=== PATIENT | male | born 1945 | race Caucasian/White ===

== ENCOUNTER → 2016-09-01 | Outpatient (CLI) | payer MEDICARE, OTHER | LOC: BMCIMAGING 13:12 | PROVIDERS: ATTEND Family Medicine | DX: R05 Cough (principal); R09.89 Other specified symptoms and signs involving the circulatory and respiratory systems ==

== ENCOUNTER 2016-12-14 19:57 | Emergency (ER) | payer OTHER ==
[2016-12-14 20:03] VITALS: TEMP 98.1
--- NOTE | 2016-12-14 20:10 | EDPHY ---
H & P Time Seen by Provider: 12/14/16 20:09 HPI/ROS: CHIEF COMPLAINT: Scalp laceration HISTORY OF PRESENT ILLNESS: Patient has a history of cirrhosis and alcoholism. He did fall 4 days ago working on the water system on their house. He fell today when he was in the bedroom at home lacerating his head on a corner of furniture. Mechanical fall, not syncope. No seizure activity. No loss of consciousness. He has been drinking alcohol today. He was still able to appropriately answer questions. No seizure activity reported. Currently still able to walk. He is really at his neurologic baseline now per his . REVIEW OF SYSTEMS: Eye: no change in vision or double vision ENT: no sore throat Cardiac: no chest pain or syncope Pulmonary: no cough or SOB Abdomen: no vomiting, diarrhea, abdominal pain Musculoskeletal: Chronic right lower extremity edema unchanged, no neck or back pain. Skin: Right arm cellulitis which compared to a photograph his took 4 days ago is much improved on Keflex. Neuro: Mild headache Constitutional: no fever : no urinary symptoms A comprehensive 10 point review of systems is otherwise negative aside from elements mentioned in the history of present illness. PAST MEDICAL HISTORY: History and physical dated 01/11/2015 personally reviewed. Includes cirrhosis from alcohol, frostbite, previous extremity cellulitis. Chronic pancytopenia. Hernia repair, wrist fracture. Social history: Alcohol today. 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 General Appearance: Alert and conversant, cooperative. Eyes: No scleral icterus. ENT, Mouth: Normal mucous membranes. No hemotympanum. Respiratory: Normal respiratory effort, breath sounds equal, lungs are clear to auscultation. Cardiovascular: Regular rate and rhythm. Gastrointestinal: Abdomen is soft and non tender. Neurological: Alert and oriented x3. Slightly slurred speech. Face symmetric, normal movement and sensation in all extremities. Skin: 2 cm vertex scalp laceration. Bruising on the right upper arm. He has some erythema and open wounds on the right arm with scabs but is not hot to the touch, no drainage or pus, no lymphangitis. Compared to photograph from his from 4 days ago it is much improved. Musculoskeletal: No cervical thoracic or lumbar spine tenderness to palpation. Some right arm bruising and edema and significant right leg edema which is chronic, venous stasis changes noted. Normal range of motion of right shoulder elbow wrist and hand. Psychiatric: Not agitated. Emergency Department course/MDM: His right arm cellulitis is improving. His right leg edema is chronic. He did fall today and it was mechanical; will have head CT because of slurred speech and age, chronic thrombocytopenia risk for bleeding. 2123: Negative head CT per Melissa. Results discussed in detail at this time. Warned no more drinking. No evidence of subdural or intracranial bleed. I do not think this was likely to have been syncope. is clear this is his neurologic baseline. Warned that he needs to stop drinking alcohol. Labs reviewed including AST and bilirubin. INR slightly elevated. Chronic thrombocytopenia. Both patient and are comfortable with discharge from the emergency department and going home. Smoking Status: Former smoker Constitutional: Initial Vital Signs Temperature (C) 36.7 C 12/14/16 20:00 Heart Rate 77 12/14/16 20:00 Respiratory Rate 20 12/14/16 20:00 Blood Pressure 116/82 H 12/14/16 20:00 O2 Sat (%) 96 12/14/16 20:00 O2 Delivery Mode Room Air Allergies/Adverse Reactions: rosuvastatin calcium [From Crestor] Allergy (Verified 12/14/16 20:03) JOINT PAIN Home Medications: Medication Instructions Recorded oxyCODONE/APAP 5/325 [Percocet 1 tab PO Q6H PRN #45 tab 01/10/15 5/325 (*)] Lactulose [Cephulac 20 gm/30 ml 30 gm PO BID 05/15/15 oral soln (*)] Potassium Cl [Klor-Con 10 meq (RX)] 10 meq PO DAILY 05/15/15 Naproxen [Naprosyn] 500 mg PO BIDMEAL 05/16/15 Polyethylene Glycol 3350 [Miralax 17 gm PO DAILY PRN #0 pkt 05/23/15 17 gm (*)] oxyCODONE/APAP 5/325 [Percocet 1 tab PO Q4 PRN #0 tab 05/23/15 5/325 (*)] Oxycodone HCl/Acetaminophen 1 each PO Q6 PRN #15 tablet 06/04/15 [Oxycodone-Acetaminophen 10-325] Cephalexin [Keflex (*)] 12/14/16 Medical Decision Making - Diagnostics EKG Interpretation: 12-lead EKG interpreted by me; official reading is in trace master. My interpretation is sinus rhythm with nonspecific intraventricular conduction delay rate 69. Imaging Results: Imaging Impressions Head CT 12/14/16 20:25 Impression: 1. Scalp laceration with no acute intracranial findings. 2. Diffuse cerebral atrophy with periventricular and subcortical low attenuation consistent with chronic microvascular ischemic gliosis. Findings discussed with GILMA AC 12/14/2016 at 21:22. Procedures: Procedure: Laceration repair. Verbal consent was obtained from the patient. The 2 cm laceration on the scalp was anesthetized using 0.5% bupivacaine with epinephrine. The wound was irrigated with standard emergency department protocol, draped and explored. There were no deep structures involved. No foreign body found. The wound was repaired with shay. The wound repair was simple. Excellent hemostasis was obtained. Wound care instructions were discussed and the patient was warned regarding scarring. The procedure was performed by myself. Differential Diagnosis: Differential diagnosis considered for head injury including but not limited to concussion, skull fracture, intraparenchymal contusion, subarachnoid, subdural and epidural hematoma. - Data Points Laboratory Results: Laboratory Results 12/14/16 20:23 12/14/16 20:23 12/14/16 12/14/16 12/14/16 Unknown 20:23 20:23 WBC 4.76 10^3/uL 10^3/uL (3.80-9.50) RBC 4.04 10^6/uL L 10^6/uL (4.40-6.38) Hgb 14.5 g/dL g/dL (13.7-17.5) Hct 41.6 % % (40.0-51.0) MCV 103.0 fL H fL (81.5-99.8) MCH 35.9 pg H pg (27.9-34.1) MCHC 34.9 g/dL g/dL (32.4-36.7) RDW 14.1 % % (11.5-15.2) Plt Count 66 10^3/uL L 10^3/uL (150-400) MPV 11.0 fL fL (8.7-11.7) Neut % (Auto) 41.4 % % (39.3-74.2) Lymph % (Auto) 44.7 % % (15.0-45.0) [place] % (Auto) 7.8 % % (4.5-13.0) Eos % (Auto) 3.4 % % (0.6-7.6) Baso % (Auto) 1.9 % H % (0.3-1.7) Nucleat RBC Rel Count 0.0 % % (0.0-0.2) Absolute Neuts (auto) 1.97 10^3/uL 10^3/uL (1.70-6.50) Absolute Lymphs (auto) 2.13 10^3/uL 10^3/uL (1.00-3.00) Absolute Monos (auto) 0.37 10^3/uL 10^3/uL (0.30-0.80) Absolute Eos (auto) 0.16 10^3/uL 10^3/uL (0.03-0.40) Absolute Basos (auto) 0.09 10^3/uL 10^3/uL (0.02-0.10) Absolute Nucleated RBC 0.00 10^3/uL 10^3/uL (0-0.01) Immature Gran % 0.8 % % (0.0-1.1) Immature Gran # 0.04 10^3/uL 10^3/uL (0.00-0.10) PT 15.5 SEC H SEC (12.0-15.0) INR 1.23 H (0.83-1.16) Sodium 138 mEq/L mEq/L (134-144) Potassium 5.0 mEq/L mEq/L (3.5-5.2) Chloride 105 mEq/L mEq/L (97-110) Carbon Dioxide 17 mEq/l L mEq/l (22-31) Anion Gap 16 mEq/L mEq/L (8-16) BUN 17 mg/dL mg/dL (7-23) Creatinine 1.1 mg/dL mg/dL (0.7-1.3) Estimated GFR > 60 Glucose 137 mg/dL H mg/dL (70-100) Calcium 9.0 mg/dL mg/dL (8.5-10.4) Total Bilirubin 5.2 mg/dL H mg/dL (0.1-1.4) Conjugated Bilirubin 3.1 mg/dL H mg/dL (0.0-0.5) Unconjugated Bilirubin 2.1 mg/dL H mg/dL (0.0-1.1) AST 290 IU/L H IU/L (17-59) ALT 71 IU/L IU/L (21-72) Alkaline Phosphatase 117 IU/L IU/L (38-126) Total Protein 7.8 g/dL g/dL (6.3-8.2) Albumin 3.6 g/dL g/dL (3.5-5.0) Specimen Hemolysis 181 Departure - Departure Disposition: Home, Routine, Self-Care Clinical Impression: Alcohol abuse Scalp laceration Qualifiers: Encounter type: initial encounter Qualified Code(s): S01.01XA - Laceration without foreign body of scalp, initial encounter Condition: Good Instructions: Laceration (ED), Head Injury (ED), Alcohol Intoxication (ED) Additional Instructions: Wound Care Follow-Up: Removal of sutures in 10-14 days. Suture removal is complimentary in uncomplicated cases. Infection or abnormal findings would require reevaluation by the MD. In that case, you may be billed. Referrals: Ap Guerrero MD [Primary Care Provider] - As per Instructions
--- NOTE | 2016-12-14 20:35 | CPEKG ---
Heart Rate: 69 RR Interval: 870 P-R Interval: 208 QRSD Interval: 114 QT Interval: 432 QTC Interval: 463 P Gove: 30 QRS Gove: 78 T Wave Gove: 51 EKG Severity - ABNORMAL ECG - EKG Impression: SINUS RHYTHM EKG Impression: NONSPECIFIC INTRAVENTRICULAR CONDUCTION DELAY Electronically Signed By: Davy Gonzales 14-Dec-2016 20:41:00
[2016-12-14 20:37] LABS: % IMMATURE GRANULYOCYTES 0.8 % (0.0-1.1); ABSOLUTE IMMATURE GRANULOCYTES 0.04 10^3/uL (0.00-0.10); ADD DIFF? NO; ADD MORPH? NO; ADD SCAN? NO; ATYPICAL LYMPHOCYTE FLAG 40 (0-99); FRAGMENT RBC FLAG 0 (0-99); HEMATOCRIT 41.6 % (40.0-51.0); HEMOGLOBIN 14.5 g/dL (13.7-17.5); LEFT SHIFT FLG 0 (0-99); LIPEMIA HEMOLYSIS FLAG 90 (0-99); MEAN CELL HEMOGLOBIN 35.9 pg (27.9-34.1); MEAN CELL HEMOGLOBIN CONCENTR. 34.9 g/dL (32.4-36.7); PLATELET CLUMPS FLAG 0 (0-99); PLATELET COUNT 66 10^3/uL (150-400); RED BLOOD CELL COUNT 4.04 10^6/uL (4.40-6.38); RED CELL DISTRIBUTION WIDTH 14.1 % (11.5-15.2)
[2016-12-14 20:56] LABS: ALANINE AMINOTRANSFERASE 71 IU/L (21-72); ALBUMIN 3.6 g/dL (3.5-5.0); ALKALINE PHOSPHATASE 117 IU/L (38-126); ANION GAP 16 mEq/L (8-16); ASPARTATE AMINOTRANSFERASE 290 IU/L (17-59); BILIRUBIN,TOTAL 5.2 mg/dL (0.1-1.4); BILIRUBIN-CONJUGATED 3.1 mg/dL (0.0-0.5); BILIRUBIN-UNCONJUGATED 2.1 mg/dL (0.0-1.1); CARBON DIOXIDE 17 mEq/l (22-31); CHLORIDE 105 mEq/L (97-110); CREATININE 1.1 mg/dL (0.7-1.3); GLOMERULAR FILTRATION RATE > 60; GLUCOSE 137 mg/dL (70-100); SODIUM 138 mEq/L (134-144); SPECIMEN HEMOLYSIS 181; TOTAL PROTEIN 7.8 g/dL (6.3-8.2)
[2016-12-14 21:00] LABS: INR 1.23 (0.83-1.16); PROTIME(PATIENT) 15.5 SEC (12.0-15.0)
[2016-12-14 21:56] VITALS: BP 136/77; PULSE 76; RESP 17; O2SAT 92
== END 2016-12-14 21:56 | disposition home or self-care (01) ==
PROC: 0HQ0XZZ Repair Scalp Skin, External Approach (ICD-10-PCS; principal; 2016-12-14)
DX: S01.01XA Laceration without foreign body of scalp, initial encounter (principal); F10.10 Alcohol abuse, uncomplicated; Z87.891 Personal history of nicotine dependence; W18.39XA Other fall on same level, initial encounter; Y92.009 Unspecified place in unspecified non-institutional (private) residence as the place of occurrence of the external cause

== ENCOUNTER 2017-07-31 22:41 | Inpatient (IN) | payer OTHER ==
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
[2017-07-31] MEDS ORDERED: NS 1,000 ML IV ONE ×2 (22:58→23:13)
[2017-07-31 23:02] LABS: PLATELET COUNT 108 10^3/uL (150-400)
[2017-07-31 23:04] LABS: INR 1.24 (0.83-1.16); PROTIME(PATIENT) 15.8 SEC (12.0-15.0)
[2017-07-31] MEDS ORDERED: TRANEXAMIC ACID 1,000 MG in NS (SYRINGE) 50 ML IV ONE (23:12)
[2017-07-31] MEDS ORDERED: TRANEXAMIC ACID 1,000 MG/10 ML VIAL ONE (23:14)
[2017-07-31] MEDS ORDERED: TRANEXAMIC ACID 1,000 MG in NS 500 ML IV ONE (23:15)
[2017-07-31] MEDS ORDERED: levETIRAcetam 1000MG/NACL 100 ML IV ONE (23:15)
[2017-07-31] MEDS ORDERED: NALOXONE HCL 0.4 MG/ML INJ IVP PRN (23:42)
[2017-07-31] MEDS ORDERED: ONDANSETRON 4 MG/2 ML VIAL IVP PRN (23:42)
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
[2017-08-01] MEDS: NS 1,000 ML IV SCH ×2 (00:29→10:20)
[2017-08-01] MEDS: HYDROmorphONE/DILAUDID 1 MG/ML INJ IVP PRN ×7 (00:45→12:57)
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
[2017-08-01] MEDS ORDERED: NS 1,000 ML IV ONE ×2 (07:47→16:43)
[2017-08-01] MEDS: FAMOTIDINE 20 MG/NACL 50 ML IV SCH ×2 (09:12→20:55)
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
[2017-08-01] MEDS: levETIRAcetam 500MG/NACL 100 ML IV SCH ×2 (09:53→20:55)
[2017-08-01] MEDS ORDERED: HALOPERIDOL LACT 5 MG/ML INJ IVP PRN (14:38)
[2017-08-01] MEDS ORDERED: NS 500 ML IV PRN (14:38)
[2017-08-01] MEDS ORDERED: NALOXONE HCL 0.4 MG/ML INJ IVP PRN (14:50)
[2017-08-01] MEDS ORDERED: morphINE PCA 30 MG/30 ML PCA IV PRN (14:50)
[2017-08-01] MEDS ORDERED: OXYCODONE/APAP 5/325 TAB PO PRN (14:52)
[2017-08-01] MEDS: LR 1,000 ML IV SCH (15:12)
[2017-08-01] MEDS ORDERED: NS 500 ML IV ONE (16:39)
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
[2017-08-01] MEDS: METOPROLOL TARTRATE 5 MG/5 ML INJ IVP SCH (17:25)
[2017-08-01] MEDS: LORazepam 2 MG/ML INJ IVP SCH (19:05)
[2017-08-02] MEDS ORDERED: HYDROmorphONE/DILAUDID 1 MG/ML INJ IVP ONE (00:27)
[2017-08-02] MEDS: METOPROLOL TARTRATE 5 MG/5 ML INJ IVP SCH ×3 (00:32→11:33)
[2017-08-02] MEDS: LORazepam 2 MG/ML INJ IVP SCH ×5 (00:33→23:49)
[2017-08-02] MEDS: HYDROmorphONE/DILAUDID 1 MG/ML INJ IVP PRN (06:03)
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
[2017-08-02 07:04] LABS: INR 1.42 (0.83-1.16); PROTIME(PATIENT) 17.5 SEC (12.0-15.0)
[2017-08-02] MEDS: LR 1,000 ML IV SCH (07:55)
[2017-08-02] MEDS: FAMOTIDINE 20 MG/NACL 50 ML IV SCH ×2 (07:56→21:22)
[2017-08-02] MEDS: levETIRAcetam 500MG/NACL 100 ML IV SCH ×2 (08:10→21:22)
--- NOTE | 2017-08-02 08:19 | SOAPPROG ---
SOAP Progress Note Assessment/Plan: Assessment: VERY SOMNOLENT AND HARD TO AROUSE AFTER DILAUDID/ BS EQUAL/ REQUIRING 5L O2 ABD SOFT/ MOVES ALL EXTREM/ PUPILS SMALL HCT DOWN TO 30/ CREAT 1.7/ INR 1.5 Plan:NARCAN, IF NOT BETTER THEN FU HEAD SCAN 08/02/17 08:16 Objective: Vital Signs Temp Pulse Resp BP Pulse Ox 36.4 C 92 13 137/66 H 97 08/02/17 07:00 08/02/17 07:00 08/02/17 07:00 08/02/17 07:00 08/02/17 07:00 Laboratory Results 08/02/17 06:50 08/02/17 06:00 08/01/17 08/02/17 08/03/17 05:59 05:59 05:59 Intake Total 2471 6543 Output Total 775 750 Balance 1696 3903 PT 17.5 SEC (12.0-15.0) H 08/02/17 06:50 INR 1.42 (0.83-1.16) H 08/02/17 06:50 ICD10 Worksheet Patient Problems: Problems Problem Status Onset Alcohol intoxication Acute Rib fractures Acute SAH (subarachnoid hemorrhage) Acute Thoracic spine fracture Acute Cellulitis Acute Gouty arthropathy Acute Septic arthritis of wrist, right Acute Pancytopenia Chronic
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
[2017-08-02] MEDS ORDERED: DEXMEDETOMIDINE HCL 400 MCG in NS 100 ML IV SCH (11:30)
[2017-08-02] MEDS: DEXMEDETOMIDINE IN 0.9 % NACL 50 ML IV SCH ×3 (11:33→13:45)
[2017-08-02] MEDS: THIAMINE HCL 500 MG in NS 250 ML IV SCH (12:06)
--- NOTE | 2017-08-02 12:09 | PDINTPN ---
[employer] Super[employer] Progress Note Assessment/Plan: Assessment: ICH: Traumatic. Slight increase in bleeding. INR mildly elevated. Delerium: Likely a combination of acute head trauma/hemorrhage, hepatic encephalopathy (NH3 elevated), possible EtOH withdrawal Multiple Rib fractures: No PTX. Likely has significant pain, but difficult to assess due to his mental status. RAGINI: Suspect intravascular depletion. Still with low urine output. Acute respiratory failure: Hypercapneic, with NAG metabolic acidosis (likely due to RAGINI) as well. Cirrhosis: INR and NH3 up a bit. Plan: Intubate. Place PICC. Check CVP, and possibly NICOM, to help direct fluid management. TXA and Vitamin K to reduce ICH risk. Precedex and PRN Ativan for possible DTs. 40 min CC time exclusive of procedures, with multiple assessments for severe hypertension, tachycardia, and respiratory failure. 08/02/17 12:18 Subjective: Less responsive. Unable to report pain. Objective: Vital Signs Temp Pulse Resp BP Pulse Ox 37.2 C 141 H 34 H 191/98 H 95 08/02/17 11:00 08/02/17 11:33 08/02/17 11:00 08/02/17 11:33 08/02/17 11:00 Laboratory Results 08/02/17 06:50 08/02/17 06:00 08/01/17 08/02/17 08/03/17 05:59 05:59 05:59 Intake Total 2471 4653 Output Total 775 750 Balance 1696 3903 PT 17.5 SEC (12.0-15.0) H 08/02/17 06:50 INR 1.42 (0.83-1.16) H 08/02/17 06:50 Laboratory Tests 08/02/17 08/02/17 09:20 11:23 pCO2 47 H pO2 93 H Total CO2 19 L ABG pH 7.19 L* ABG HCO3 17 L Ammonia 42.0 H CTH: Slight increase in hematoma. Images reviewed by me. CXR: Unchanged. Images reviewed by me. Physical Exam - Physical Exam General Appearance: mild distress, No alert EENT: normal ENT inspection Neck: normal inspection Respiratory: decreased breath sounds, crackles (right) Cardiac/Chest: regular rate, rhythm, No edema Abdomen: normal bowel sounds, non-tender Skin: normal color, warm/dry Extremities: normal inspection Neuro/Psych: No alert, No normal mood/affect, No oriented x 3, No motor weakness ICD10 Worksheet Patient Problems: Problems Problem Status Onset Alcohol intoxication Acute Rib fractures Acute SAH (subarachnoid hemorrhage) Acute Thoracic spine fracture Acute Cellulitis Acute Gouty arthropathy Acute Septic arthritis of wrist, right Acute Pancytopenia Chronic
[2017-08-02] MEDS ORDERED: LIDOCAINE 1% 300 MG/30 ML SDV ONE (12:28)
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
[2017-08-02] MEDS: fentaNYL/NACL 100 ML IV SCH (12:47)
[2017-08-02] MEDS ORDERED: LIDOCAINE 1% 300 MG/30 ML SDV IH ONE (13:00)
[2017-08-02] MEDS ORDERED: PHYTONADIONE 2.5 MG/2.5 ML ORAL UDL PO ONE (13:31)
[2017-08-02] MEDS ORDERED: TRANEXAMIC ACID 1,000 MG in NS (SYRINGE) 50 ML IV ONE (13:32)
[2017-08-02] MEDS ORDERED: LACTULOSE 20 GM/30 ML UDCUP PO PRN (13:33)
[2017-08-02] MEDS ORDERED: NS 1,000 ML IV ONE ×2 (15:10→17:30)
--- NOTE | 2017-08-02 18:19 | GPN ---
[f rep st] PROCEDURE NOTE DATE OF PROCEDURE: 08/02/2017 PROCEDURE: Flexible fiberoptic bronchoscopy. REASON FOR PROCEDURE: Acute hypercapnic respiratory failure with failure to protect airway, need for intubation, and possible retained secretions. PROCEDURE NOTE: The risks and benefits of the procedure were explained to the patient's , who ag marielena to proceed. It was my assessment that there was no risk of airborne infection from the procedur e. After an appropriate time-out, a bite block was placed between the patient's teeth, and the [facility] hoscope was advanced through the bite block into the vocal cords. 2 cc of 1% lidocaine was used topi geri on the airways for anesthesia. The bronchoscope was advanced through the vocal cords into the main trachea, where the endotracheal tube was secured and placed in the distal trachea. The bronchos cope was removed and the patient was bagged. His saturations never fell below 90%. The bronchoscope was then reintroduced into the endotracheal tube. There were scattered, white thin foamy secretions throughout all airways. These were easily suctioned. The airway anatomy and mucosa were normal, wi th no endobronchial lesions. No specimens were sent. The position of the endotracheal tube 2 cm abo ve the main radames was confirmed, and the bronchoscope was removed. No additional sedation was used. No specimens were sent. /[id number]/MODL
[2017-08-02] MEDS ORDERED: ALBUMIN 5% 500 ML IV ONE (19:00)
[2017-08-03] MEDS: LR 1,000 ML IV SCH ×2 (02:24→20:53)
[2017-08-03] MEDS: DEXMEDETOMIDINE IN 0.9 % NACL 50 ML IV SCH ×3 (02:24→18:05)
[2017-08-03] MEDS: LORazepam 2 MG/ML INJ IVP SCH ×3 (05:03→18:05)
[2017-08-03] MEDS ORDERED: ALTEPLASE 2 MG VIAL ONE ×2 (05:05→05:08)
[2017-08-03 05:44] LABS: PLATELET COUNT 53 10^3/uL (150-400)
[2017-08-03] MEDS: ALTEPLASE 2 MG VIAL IVP PRN ×2 (06:26→06:27)
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
[2017-08-03] MEDS ORDERED: FUROSEMIDE 20 MG/2 ML VIAL IVP ONE (09:04)
[2017-08-03] MEDS: levETIRAcetam 500MG/NACL 100 ML IV SCH ×2 (09:20→20:54)
[2017-08-03] MEDS: THIAMINE HCL 500 MG in NS 250 ML IV SCH (09:20)
[2017-08-03] MEDS: FAMOTIDINE 20 MG/NACL 50 ML IV SCH ×2 (09:20→20:53)
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
[2017-08-03] MEDS ORDERED: LORazepam 2 MG/ML INJ IVP ONE (10:17)
[2017-08-03] MEDS: METOPROLOL TARTRATE 5 MG/5 ML INJ IVP PRN (10:28)
[2017-08-03] MEDS ORDERED: ALBUMIN 5% 250 ML IV ONE (11:32)
[2017-08-03] MEDS: cefTRIAXone 2 GM in STERILE WATER INJ 20 ML IV SCH (12:13)
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
--- NOTE | 2017-08-03 12:46 | CPEKG ---
Heart Rate: 115 RR Interval: 522 P-R Interval: 140 QRSD Interval: 102 QT Interval: 340 QTC Interval: 471 P [place]: 64 QRS [place]: 57 T Wave [place]: 45 EKG Severity - OTHERWISE NORMAL ECG - EKG Impression: SINUS TACHYCARDIA EKG Impression: LOW VOLTAGE IN FRONTAL LEADS Electronically Signed By: Oleksandr Leiva 04-Aug-2017 15:49:08
[2017-08-03] MEDS: fentaNYL/NACL 100 ML IV SCH (14:30)
[2017-08-03] MEDS: FUROSEMIDE 40 MG/4 ML VIAL IVP SCH (19:36)
[2017-08-03] MEDS: ALBUMIN 5% 250 ML IV SCH (20:53)
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
[2017-08-04] MEDS: LORazepam 2 MG/ML INJ IVP SCH ×5 (01:45→18:09)
[2017-08-04] MEDS: ALBUMIN 5% 250 ML IV SCH ×2 (02:06→12:06)
[2017-08-04] MEDS: FUROSEMIDE 40 MG/4 ML VIAL IVP SCH ×2 (02:11→08:50)
[2017-08-04] MEDS: METOPROLOL TARTRATE 5 MG/5 ML INJ IVP PRN (03:04)
[2017-08-04 04:59] LABS: INR 1.9 (0.83-1.16); PLATELET COUNT 56 10^3/uL (150-400); PROTIME(PATIENT) 21.9 SEC (12.0-15.0)
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
[2017-08-04] MEDS: cefTRIAXone 2 GM in STERILE WATER INJ 20 ML IV SCH (08:50)
[2017-08-04] MEDS: THIAMINE HCL 500 MG in NS 250 ML IV SCH (08:50)
[2017-08-04] MEDS: levETIRAcetam 500MG/NACL 100 ML IV SCH ×2 (08:51→20:08)
[2017-08-04] MEDS ORDERED: 1/2 NS 1,000 ML IV SCH (09:30)
[2017-08-04] MEDS ORDERED: LACTULOSE 20 GM/30 ML UDCUP PO SCH ×2 (09:30→16:00)
--- NOTE | 2017-08-04 09:45 | SOAPPROG ---
SOAP Progress Note Assessment/Plan: Assessment: R glenoid fracture R clavicle fracture Plan: Based on plain films and CT I would recommend non operative treatment for the above Non wt bearing RUE sling for comfort, does not need to wear sling ROM as tolerated RUE follow up in 10 days for shoulder and clavicle films as outpatient or if still in the hospital will order films 08/04/17 09:41 Objective: Vital Signs Temp Pulse Resp BP Pulse Ox 37.3 C 126 H 22 H 144/62 H 95 08/04/17 09:00 08/04/17 09:00 08/04/17 09:00 08/04/17 09:00 08/04/17 09:00 Microbiology 08/03/17 12:00 Blood Panel (PCR) - Final Blood S.aureus Methicillin Suscept. Streptococcus 08/03/17 12:28 - Final Sputum, Induced/Suctioned Laboratory Results 08/04/17 04:30 08/04/17 04:30 08/03/17 08/04/17 08/05/17 05:59 05:59 05:59 Intake Total 4501 1996 Output Total 1000 3355 1000 Balance 3501 -1358 -1000 PT 21.9 SEC (12.0-15.0) H 08/04/17 04:30 INR 1.90 (0.83-1.16) H 08/04/17 04:30 ICD10 Worksheet Patient Problems: Problems Problem Status Onset Alcohol intoxication Acute Rib fractures Acute SAH (subarachnoid hemorrhage) Acute Thoracic spine fracture Acute Cellulitis Acute Gouty arthropathy Acute Septic arthritis of wrist, right Acute Pancytopenia Chronic
[2017-08-04] MEDS ORDERED: PHYTONADIONE 10 MG in NS (SYRINGE) 50 ML IV ONE (10:08)
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
[2017-08-04] MEDS ORDERED: POTASSIUM Cl (KCl) 10 MEQ in D5W 1/2 NS 1,000 ML IV SCH (11:30)
[2017-08-04] MEDS: METOCLOPRAMIDE 10 MG/2 ML VIAL IVP SCH ×2 (12:06→18:05)
[2017-08-04] MEDS: LIDOCAINE 5% 1 EA PATCH TD SCH (12:11)
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
[2017-08-04] MEDS ORDERED: THIAMINE HCL 100 MG TAB PO SCH (14:38)
[2017-08-04] MEDS ORDERED: METOPROLOL TARTRATE 5 MG/5 ML INJ ONE ×2 (14:44→14:50)
[2017-08-04] MEDS: METOPROLOL TARTRATE 5 MG/5 ML INJ IVP SCH ×2 (14:45→18:10)
--- NOTE | 2017-08-04 15:41 | CPEKG ---
Heart Rate: 154 RR Interval: 390 QRSD Interval: 108 QT Interval: 312 QTC Interval: 500 QRS Hudson: 54 T Wave Hudson: -11 EKG Severity - ABNORMAL ECG - EKG Impression: ATRIAL FIBRILLATION WITH RAPID V-RATE EKG Impression: VENTRICULAR PREMATURE COMPLEX EKG Impression: LOW VOLTAGE IN FRONTAL LEADS EKG Impression: BORDERLINE T ABNORMALITIES, INFERIOR LEADS Electronically Signed By: Oleksandr Leiva 04-Aug-2017 15:48:50
[2017-08-04] MEDS: LACTULOSE 20 GM/30 ML UDCUP TUBE SCH ×2 (15:42→21:29)
[2017-08-04] MEDS ORDERED: MAGNESIUM SULF 2 GM/WATER 50 ML IV ONE (15:44)
[2017-08-04] MEDS ORDERED: POTASSIUM Cl (KCl) 100 ML IV SCH (15:45)
[2017-08-04] MEDS ORDERED: DILTIAZEM 25 MG/5 ML VIAL IVP SCH (15:45)
[2017-08-04] MEDS ORDERED: POTASSIUM Cl (KCl) 20 MEQ in D5W 50 ML IV SCH (16:00)
[2017-08-04] MEDS: DILTIAZEM 125 MG in D5W 125 ML IV SCH ×2 (16:09→23:08)
[2017-08-04] MEDS ORDERED: DIGOXIN 500 MCG/2 ML AMP IVP ONE (16:38)
[2017-08-04] MEDS: POTASSIUM Cl (KCl) 50 ML IV SCH ×2 (16:47→17:58)
[2017-08-04] MEDS: PETROLAT,WHT/MIN OIL/SOD CHL 3.5 GM OPHT.OINT EACHEYE PRN (18:10)
[2017-08-04] MEDS: FAMOTIDINE 20 MG/NACL 50 ML IV SCH (20:08)
[2017-08-04] MEDS: PATCH REMOVAL 1 EA PATCH TD SCH (21:29)
[2017-08-04] MEDS: ALBUMIN 25% 100 ML IV SCH (21:29)
[2017-08-05] MEDS: METOCLOPRAMIDE 10 MG/2 ML VIAL IVP SCH ×5 (00:37→23:57)
[2017-08-05] MEDS: METOPROLOL TARTRATE 5 MG/5 ML INJ IVP SCH ×5 (00:41→23:47)
[2017-08-05] MEDS: LORazepam 2 MG/ML INJ IVP SCH ×3 (00:54→13:35)
[2017-08-05 04:49] LABS: INR 1.63 (0.83-1.16); PROTIME(PATIENT) 19.5 SEC (12.0-15.0)
[2017-08-05 04:58] LABS: PLATELET COUNT 65 10^3/uL (150-400)
[2017-08-05] MEDS: ALBUMIN 25% 100 ML IV SCH ×3 (05:01→23:47)
[2017-08-05] MEDS ORDERED: ACETAMINOPHEN 650 MG/20.3 ML UDCUP TUBE ONE (06:15)
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
[2017-08-05] MEDS: LIDOCAINE 5% 1 EA PATCH TD SCH ×2 (07:38→13:38)
[2017-08-05] MEDS: POTASSIUM CL 20 MEQ/15 ML UDCUP TUBE SCH ×2 (07:39→17:25)
[2017-08-05] MEDS: FUROSEMIDE 40 MG/4 ML VIAL IVP SCH (07:39)
[2017-08-05] MEDS: levETIRAcetam 500MG/NACL 100 ML IV SCH ×2 (07:39→22:14)
[2017-08-05] MEDS: cefTRIAXone 2 GM in STERILE WATER INJ 20 ML IV SCH (07:39)
[2017-08-05] MEDS: LACTULOSE 20 GM/30 ML UDCUP TUBE SCH ×3 (07:39→23:57)
--- NOTE | 2017-08-05 09:00 | TRAUMAPN ---
- Problem/Surgery Performed (1) Alcohol intoxication Assessment/Plan: PAD#4 08/04/2017 Assessment: No evidence of withdrawal at this point ( etiology of tachycardia appears to be multifactorial) This has been a chronic problem. Note MCV= 108, cirrhosis Plan: Supportive care. halfway plan will need to be developed Qualifiers: Complication of substance-induced condition: uncomplicated Qualified Code(s ): F10.920 - Alcohol use, unspecified with intoxication, uncomplicated (2) Rib fractures Assessment/Plan: PAD#4 Assessment: Has multiple right rib and transverse process fractures No PTX but increasing bilateral (R>L) fluid collections Plan: CT to assess. May need chest tube/thoracentesis/VATS PAD#5 Assessment: CT yesterday showed left rib fractures that had not been reported on original CT read (1st- old, new laterally- 4,5,6,8,10,11, posteriorly - 5,6,7,8,9,10). Bilateral fluid collections were at [place] level consistent with fluid not blood. bilateral lower lobe consolidation seen. Lidoderm patch used on right. Plan: continue pulmonary support. Add lidoderm patch to left chest. Qualifiers: Encounter type: initial encounter Rib fracture type: multiple ribs Fracture type: closed Laterality: right Qualified Code(s): S22.41XA - Multiple fractures of ribs, right side, initial encounter for closed fracture (3) SAH (subarachnoid hemorrhage) Assessment/Plan: PAD#4 Assessment: Neurosurgery input appreciated. Plan: As per neurosurgery will continue Keppra and continue to re-assess. PAD#5 Assessment: less arousable. No longer moving toes to command Plan: per neurosurgery (4) Thoracic spine fracture Assessment/Plan: PAD#4 Assessment: TLSO brace present PAD#5 same Qualifiers: Encounter type: initial encounter Thoracic vertebra fracture level: T9 Fracture type: closed Fracture morphology: burst- stable Qualified Code(s): S22.071A - Stable burst fracture of T9-T10 vertebra, initial encounter for closed fracture (5) Cellulitis Assessment/Plan: PAD#4 Assessment: Edema 4+ erythema present but improved per nursing. Perhaps this is the source of his MSSA sepsis Plan: Work to minimize edema with tanya wrap and elevation PAD#5 assessment: Edema dramatically reduced Qualifiers: Site of cellulitis: extremity Site of cellulitis of extremity: lower extremity Laterality: right Qualified Code(s): L03.115 - Cellulitis of right lower limb (6) Pancytopenia Assessment/Plan: PAD#4 Assessment: Platelets still low. Will not transfuse unless symptomatic or procedure planned. PAD#5 Assessment: Hct stabilizing platelets up to 65 WBC up to 11k. Assessment/Plan: PAD#4 Assessment: 1)Nutrition- no bowel function yet and moderate NG output. 2)Coagulation status: INR increasing 3)Elevated total and direct Bilirubin. Known gall stones 4)Fluid status: Total body fluid overload but possibly intravascularly dry 5)Sedation:currently off and patient appears to be slowly becoming interactive. (Moves toes to request) Plan: 1)Will add glucose to IV fluids ( has received Thiamine) and consider TPN if enteric feeding does not become an option. 2)Vit K added as well as FFP 3)Bilirubin issues unclear. May be due to liver failure but if increases will need to consider MRCP to help guide plans 4)Gentle diuresis continues 5)Added topical lidoderm for pain control / hope to minimize narcotics PAD#5 Assessment: Still critical 1)Nutrition- Gastric residuals minimal, minimal bowel sounds 2)Coagulation status: INR improved 3)Continued elevated total and direct Bilirubin. Known gall stones. Bile ducts not dilated on CT yesterday. There do not appear to be any contributing medications. 4)Fluid status: Total body fluid overload but possibly intravascularly dry. BUN up but Cr down. 5)Sedation:currently off and patient appears to be slowly becoming interactive. (Moves toes to request) 6)Afib started yesterday. Responded to diltiazem drip. 7)Infection: low grade temp, MSSA and strep C. + blood cultures, H. Flu and strep in sputum Plan: 1)After MRCP will start trickle feeds 2)will follow INR 3)Bilirubin issues still unclear. Presume elevated bilirubin is due to cirrhosis and failing liver. MRCP p;anned for this morning 4)Gentle diuresis continues. 5)Additional topical lidoderm patch added for left side for pain control / hope to minimize narcotics 6)Follow cardiac status 7)Will adjust antibiotics per C&S Objective: Vital Signs Temp Pulse Resp BP Pulse Ox 38.1 C 113 H 26 H 159/54 H 93 08/05/17 07:00 08/05/17 08:00 08/05/17 08:00 08/05/17 08:00 08/05/17 08:00 Microbiology 08/03/17 12:00 Blood Panel (PCR) - Final Blood S.aureus Methicillin Suscept. Streptococcus 08/03/17 12:28 - Final Sputum, Induced/Suctioned Laboratory Results 08/05/17 04:20 08/05/17 04:20 08/04/17 08/05/17 08/06/17 05:59 05:59 05:59 Intake Total 1996 2661 Output Total 3355 4975 65 [facility] -1358 -2313 -65 PT 19.5 SEC (12.0-15.0) H 08/05/17 04:20 INR 1.63 (0.83-1.16) H 08/05/17 04:20 - C-Spine Clearance Cervical Spine Cleared: Yes Physical Exam - Physical Exam General Appearance: other (intubated, non-responsive) Respiratory: decreased breath sounds (intubated- minimal normal sectetions), crackles, rhonchi, other Abdomen: normal bowel sounds (hypoactive, no stool yet), distended Male Genitalia: deferred Rectal: deferred Back: Normal inspection Skin: normal color, warm/dry, jaundice Extremities: other (Right lower leg swelling dramatically improved) Neuro/Psych: other (intubated, non-responsive) Time Spent w/Patient (minutes): 45
[2017-08-05] MEDS: POTASSIUM Cl (KCl) 20 MEQ in D5W 1,000 ML IV SCH ×2 (09:58→21:30)
--- NOTE | 2017-08-05 10:58 | ASMTCMCOM ---
CM Note CM Note Notes: Patient remains intubated but has been off sedation for >24 hrs. Per RN, he is not showing any meaningful responses. He has an NG tube and will begin trickle feeds after MRCP today. His liver function continues to be an impediment to his progress. Inpatient rehab consult has been ordered but patient has not been able to participate in therapies. His family has requested a family meeting; this will be held tomorrow at 12pm. Current CM Discharge plan: TBD Date Signed: 08/05/2017 10:58 AM Electronically Signed By:Alma Bryan RN
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
[2017-08-05] MEDS ORDERED: PROTOCOL POTASSIUM 1 DOSE MISC PRN (15:39)
--- NOTE | 2017-08-05 16:18 | ECHO ---
[email or web address] [place] [id number] Main: [phone] Fax: Transthoracic Echocardiogram Name: KERI MANN MR#: [id number] Study Date: 08/04/2017 Study Time: 03:23 PM Date of : 1945 Age: 71 year(s) Height: 188 cm (74 in.) Weight: 97.52 kg (215 lb.) BSA: 2.24 m2 Gender: Male Examination: Limited Echo Indication: ST after chest trauma Image Quality: Contrast: Requested by: Mike Raman BP: 116 mmHg/52 mmHg Heart Rate: Rhythm: Indication: ST after chest trauma Procedure Staff News Videotape Editor: Brittney Rizo RUST Reading Physician: Sylvester López Requesting Provider: Conclusions: No pericardial effusion. Ejection fraction 65% without regional wall motion abnormalities. Normal right ventricular size and function. No significant valvular abnormalities by Doppler 2 dimensional study. Measurements: Chambers Valvular Assessment AV/MV Valvular Assessment TV/PV Normal Normal Normal Name Value Range Name Value Range Name Value Range Ao Carla (MM): 3.9 cm (2.2 cm-3.7 AV meanP mmHg ( - ) cm) MV E Vmax: 0.65 m/s ( - ) LVDd (2D): 4.8 cm (4.2 cm-5.9 MV A Vmax: 1.38 m/s ( - ) cm) MV E/A: 0.47 ( - ) EF Range: 65-70 % Continued Measurements: Chambers Valvular Assessment AV/MV Name Value Name Value LADs: 4.3 cm MV E' Septal: 0.17 m/s LADs Lon.3 cm MV E/E' Septal: 3.90 LA Area: 16.4 cm2 Findings: Left Ventricle: Normal size left ventricle. No LV hypertrophy. Normal global systolic LV function. The ejection fraction is estimated to be 65-70 %. No regional wall motion abnormality. Right Ventricle: Normal size right ventricle. Patient: KERI MANN Study Date: 08/04/2017 Page 1 of 2 03:23 PM Left Atrium: The left atrium is normal in size. Right Atrium: The right atrium is normal in size. Mitral Valve: The mitral valve is normal in appearance and function. Aortic Valve: The aortic valve is normal in appearance and function. Tricuspid Valve: The tricuspid valve is normal in appearance and function. Pulmonic Valve: Pulmonary valve not well visualized. Aorta: The aorta is normal. Pericardium: No pericardial effusion. (No Signature Object) Patient: KERI MANN Study Date: 08/04/2017 Page 2 of 2 03:23 PM [id number]
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
[2017-08-05] MEDS: POTASSIUM Cl (KCl) 50 ML IV SCH ×2 (22:13→23:49)
[2017-08-05] MEDS: PATCH REMOVAL 1 EA PATCH TD SCH ×2 (22:14→22:15)
[2017-08-05] MEDS: FAMOTIDINE 20 MG/NACL 50 ML IV SCH (22:59)
[2017-08-06] MEDS: POTASSIUM Cl (KCl) 10 MEQ in NS 50 ML IV SCH ×3 (04:55→06:19)
[2017-08-06] MEDS: METOCLOPRAMIDE 10 MG/2 ML VIAL IVP SCH ×4 (04:58→23:55)
[2017-08-06] MEDS: METOPROLOL TARTRATE 5 MG/5 ML INJ IVP SCH ×4 (05:42→21:34)
[2017-08-06 07:00] LABS: INR 2.01 (0.83-1.16); PROTIME(PATIENT) 22.8 SEC (12.0-15.0)
[2017-08-06 07:14] LABS: PLATELET COUNT 48 10^3/uL (150-400)
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
[2017-08-06] MEDS: LIDOCAINE 5% 1 EA PATCH TD SCH ×2 (08:38)
[2017-08-06] MEDS: cefTRIAXone 2 GM in STERILE WATER INJ 20 ML IV SCH (08:39)
[2017-08-06] MEDS: FUROSEMIDE 40 MG/4 ML VIAL IVP SCH (08:39)
[2017-08-06] MEDS: LACTULOSE 20 GM/30 ML UDCUP TUBE SCH ×3 (08:39→21:35)
[2017-08-06] MEDS: levETIRAcetam 500MG/NACL 100 ML IV SCH ×2 (08:39→21:05)
[2017-08-06] MEDS: PETROLAT,WHT/MIN OIL/SOD CHL 3.5 GM OPHT.OINT EACHEYE PRN (08:48)
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
[2017-08-06] MEDS: ALBUMIN 25% 100 ML IV SCH ×3 (12:32→21:34)
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
--- NOTE | 2017-08-06 14:27 | CPEEG ---
[f rep st] ELECTROENCEPHALOGRAM DATE OF STUDY: 08/06/2017 FINDINGS: This EEG is abnormal due to severe, diffuse suppression of background activity. These findings would be consistent with a severe diffuse disturbance of cortical function and/or could be related to sedating medication effect. There were no potentially epileptogenic abnormalities or seizures present during the recording. REPORT: This EEG contains a background that shows diffuse, severe suppression of background activity in terms of abundance and amplitudes of background activity. The record was somewhat obscured by significant 60 cycle artifact with superimposed respirator movement artifact and myogenic artifact related to respiration. The background activity was fairly monotonous without significant variation throughout the recording. There were no potentially epileptogenic abnormalities or seizure discharges recorded during the study. /[id number]/MODL MTDD
[2017-08-06] MEDS ORDERED: LIDOCAINE 2% JELLY 20 ML (UROJECT) ONE (14:54)
[2017-08-06] MEDS ORDERED: LIDOCAINE 1% 300 MG/30 ML SDV ONE (14:54)
[2017-08-06] MEDS ORDERED: POTASSIUM Cl (KCl) 50 ML IV SCH (15:30)
[2017-08-06] MEDS ORDERED: POTASSIUM Cl (KCl) 10 MEQ in D5W 100 ML IV SCH (15:30)
[2017-08-06] MEDS ORDERED: PROTOCOL POTASSIUM 1 DOSE MISC PRN (15:46)
--- NOTE | 2017-08-06 16:04 | ASMTCMCOM ---
CM Note CM Note Notes: A family meeting was held today to support the patient's family. See "family meeting" in notes section of chart. Dr. Raman did inform family today we will have to "wait and see" before questions can be answered regarding neurological function. Patient's liver function has not improved which leaves him more vulnerable. D/C options were reviewed only briefly since medical needs are hard to determine right now. cafe aide did let us know that patient does not have Medicare because he was unable to make the payments and Medicaid does not want to cover because patient is over 65 and it should be covered by Medicare. Patient is currently without insurance which will prevent him from being eligible for any rehab services. Frannie, patient's was encouraged to meet with financial management analyst, Peggy, to get a plan together for reapplying for Medicare for patient. She did in fact meet with Peggy but needs to review paperwork she has at the house. Dr. Raman said we will need at least 5 more days of treatment and observation to see what changes in patient's neurological status might improve. CM will follow. Date Signed: 08/06/2017 04:03 PM Electronically Signed By:Melly Jorge LCSW
[2017-08-06] MEDS: POTASSIUM Cl (KCl) 10 MEQ in NS 100 ML IV SCH ×3 (16:19→19:15)
--- NOTE | 2017-08-06 18:09 | ECHO ---
[email or web address] [address] Main: [phone] Fax: Transthoracic Echocardiogram Name: KERI MANN MR#: [id number] Study Date: 08/06/2017 Study Time: 11:16 AM Date of : 1945 Age: 71 year(s) Height: 188 cm (74 in.) Weight: 95.26 kg (210 lb.) BSA: 2.22 m2 Gender: Male Examination: Echo Indication: Bacteremia, Unclear Source, Eval for Endocarditis, Intubated Image Quality: Contrast: Requested by: Kortney Ny BP: 118 mmHg/58 mmHg Heart Rate: Rhythm: Tachycardia Indication: Bacteremia, Unclear Source, Eval for Endocarditis, Intubated Procedure Staff Ditch Repairer: Jt Hector [facility] Reading Physician: Oleksandr Leiva Requesting Provider: Conclusions: Normal size left ventricle. EF is 72 %. No regional wall motion abnormality. Trivial mitral valve regurgitation. Technically limited study. Consider CHRISTIANO if there is a high clinical index of suspicion for endocarditis. Measurements: Chambers Valvular Assessment AV/MV Valvular Assessment TV/PV Normal Normal Normal Name Value Range Name Value Range Name Value Range Ao Carla (MM): 3.4 cm (2.2 cm-3.7 AV Vmax: 1.56 m/s (1 m/s-1.7 TR Vmax: 1.74 mm/s ( - ) cm) m/s) TR PGmax: 12 mmHg ( - ) IVSd (2D): 0.7 cm (0.6 cm-1.1 AV maxP mmHg ( - ) syst. PAP: 17 mmHg ( - ) cm) LVOT Vmax: 1.10 m/s (0.7 m/s-1.1 PV Vmax: 1.41 m/s (0.6 m/s-0.9 LVDd (2D): 5.7 cm (4.2 cm-5.9 m/s) m/s) cm) MV E Vmax: 0.95 m/s ( - ) PV PGmax: 8 mmHg ( - ) LVDs (2D): 3.3 cm (2.1 cm-4 cm) LVPWd (2D): 0.9 cm (0.6 cm-1 cm) LVEF (2D): 72 (>=54 %) Continued Measurements: Valvular Assessment AV/MV Valvular Assessment TV/PV Name Value Name Value MV E/E' Septal: 20.80 CVP (est.): 5 mmHg MV E/E' Lateral: 8.40 Patient: KERI MANN Study Date: 08/06/2017 Page 1 of 2 11:16 AM Findings: Left Ventricle: Normal size left ventricle. No LV hypertrophy. Global hypercontractility of the left ventricle. EF is 72 %. No regional wall motion abnormality. Diastolic dysfunction is present. . Right Ventricle: Normal size right ventricle. Left Atrium: The left atrium is normal in size. Right Atrium: The right atrium is normal in size. Mitral Valve: Mild mitral valve leaflet calcification is present. Trivial mitral valve regurgitation. There is no obvious vegetations noted on the mitral valve.. Aortic Valve: The aortic valve is normal in appearance. There is no aortic valve regurgitation. There is no aortic valve vegetation. Tricuspid Valve: The tricuspid valve appears normal. Pulmonic Valve: Pulmonary valve not well visualized. Aorta: The aorta is normal. Pericardium: No pericardial effusion. Exam Comments: There is no obvious vegetation on the mitral or aortic valve, if clinically indicated consider CHRISTIANO.. (No Signature Object) Patient: KERI MANN Study Date: 08/06/2017 Page 2 of 2 11:16 AM [id number]
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
[2017-08-06] MEDS: DILTIAZEM HCL/D5W 125 ML IV SCH (21:02)
[2017-08-06] MEDS: FAMOTIDINE 20 MG/NACL 50 ML IV SCH (21:04)
[2017-08-06] MEDS: PATCH REMOVAL 1 EA PATCH TD SCH ×2 (21:04)
[2017-08-07] MEDS ORDERED: POTASSIUM Cl (KCl) 50 ML IV ONE (00:46)
[2017-08-07] MEDS: METOPROLOL TARTRATE 5 MG/5 ML INJ IVP SCH ×6 (01:25→21:16)
[2017-08-07] MEDS: POTASSIUM Cl (KCl) 20 MEQ in D5W 1,000 ML IV SCH ×2 (03:29→14:02)
[2017-08-07] MEDS: METOCLOPRAMIDE 10 MG/2 ML VIAL IVP SCH ×3 (05:17→17:53)
[2017-08-07] MEDS: ALBUMIN 25% 100 ML IV SCH ×3 (05:17→21:29)
[2017-08-07 05:38] LABS: PLATELET COUNT 45 10^3/uL (150-400)
[2017-08-07 05:45] LABS: INR 2.11 (0.83-1.16); PROTIME(PATIENT) 23.7 SEC (12.0-15.0)
[2017-08-07] MEDS: LACTULOSE 20 GM/30 ML UDCUP TUBE SCH ×3 (08:29→21:16)
[2017-08-07] MEDS: FUROSEMIDE 40 MG/4 ML VIAL IVP SCH (08:29)
[2017-08-07] MEDS: cefTRIAXone 2 GM in STERILE WATER INJ 20 ML IV SCH (08:29)
[2017-08-07] MEDS: LIDOCAINE 5% 1 EA PATCH TD SCH ×2 (08:29→08:30)
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
[2017-08-07] MEDS: levETIRAcetam 500MG/NACL 100 ML IV SCH (09:06)
[2017-08-07] MEDS: DESMOPRESSIN ACETATE 4 MCG/ML INJ IVP SCH ×2 (10:25→21:16)
--- NOTE | 2017-08-07 11:37 | TRAUMAPN ---
Assessment/Plan: - Problem/Surgery Performed (1) Alcohol intoxication Assessment/Plan: Assessment: No evidence of withdrawal at this point Qualifiers: Complication of substance-induced condition: uncomplicated Qualified Code(s ): F10.920 - Alcohol use, unspecified with intoxication, uncomplicated (2) Rib fractures Assessment/Plan: Has multiple right rib and transverse process fractures CT left rib fractures 4,5,6,8,10,11, posteriorly - 5,6,7,8,9,10 Still on Vent. Bilateral lower lobe consolidation continues. Qualifiers: Encounter type: initial encounter Rib fracture type: multiple ribs Fracture type: closed Laterality: right Qualified Code(s): S22.41XA - Multiple fractures of ribs, right side, initial encounter for closed fracture (3) SAH (subarachnoid hemorrhage) Assessment/Plan: As per neurosurgery will continue Keppra and continue to re-assess. EEG performed (4) Thoracic spine fracture Assessment/Plan: TLSO brace present Qualifiers: Encounter type: initial encounter Thoracic vertebra fracture level: T9 Fracture type: closed Fracture morphology: burst- stable Qualified Code(s): S22.071A - Stable burst fracture of T9-T10 vertebra, initial encounter for closed fracture (5) Cellulitis Assessment/Plan: On antibiotics. No drainable abscess. Erythema per report improved. Could be contributing to MSSA sepsis Neuro: No benzos or precedex x 72 hours and not responsive Resp - On vent Cards - monitor tachycardia FEN- tube feeds at goal. Some BM Rib fx - supportive tx GI - cirrhosis. MELD high. Critically ill. Unknown prognosis. Family continuing to discuss goals Cirrhosis S: intubated and sedated Objective: Vital Signs Temp Pulse Resp BP Pulse Ox 39.2 C H 117 H 21 H 124/56 H 93 08/07/17 10:00 08/07/17 10:17 08/07/17 10:00 08/07/17 10:17 08/07/17 10:00 Microbiology 08/06/17 16:55 Gram Stain - Final Lung Bilateral - Bronchial Washings 08/03/17 12:35 Blood Culture - Final Blood Strep Dysgalactiae Grp C/G Staphylococcus Aureus 08/03/17 12:00 Blood Culture - Final Blood Streptococcus Dysgalactiae/Can Staphylococcus Aureus Blood Panel (PCR) - Final S.aureus Methicillin Suscept. Streptococcus Laboratory Results 08/07/17 05:15 08/07/17 05:15 08/06/17 08/07/17 08/08/17 05:59 05:59 05:59 Intake Total 3525 4474 Output Total 3663 3300 Balance -138 1174 PT 23.7 SEC (12.0-15.0) H 08/07/17 05:15 INR 2.11 (0.83-1.16) H 08/07/17 05:15 - C-Spine Clearance Cervical Spine Cleared: Yes Physical Exam - Physical Exam General Appearance: no apparent distress, obtunded Neck: other (in collar) Respiratory: other (coarse) Cardiac/Chest: tachycardia Abdomen: normal bowel sounds, soft, other (firmer on left) Neuro/Psych: No alert
--- NOTE | 2017-08-07 11:41 | PCMIDPN ---
Assessment/Plan: Assessment/Plan: * Polymicrobial bacteremia due to MSSA and group C/G Streptococcus: May be associated with pulmonary etiology given growth of Streptococcus from sputum as well. No clinical findings of cellulitis on exam. Remains bacteremic with Staphylococcus aureus. Based on this finding, will change ceftriaxone to cefazolin which should cover both organisms. Echocardiogram without overt evidence of endocarditis. Plan repeat blood cultures in a.m. to assess for clearing of bacteremia. Bacteremia complicated by underlying cirrhosis. * Fever: Difficult to distinguish how much of fever is due to bacteremia versus central etiology. Likely both contributing. 08/07/17 11:38 08/07/17 11:42 Subjective: Intubated and unresponsive. Off Precedex. Objective: Vital Signs Temp Pulse Resp BP Pulse Ox 39.2 C H 111 H 39 H 124/56 H 96 08/07/17 10:00 08/07/17 11:25 08/07/17 11:25 08/07/17 10:17 08/07/17 11:25 Microbiology 08/06/17 16:55 Gram Stain - Final Lung Bilateral - Bronchial Washings 08/03/17 12:35 Blood Culture - Final Blood Strep Dysgalactiae Grp C/G Staphylococcus Aureus 08/03/17 12:00 Blood Culture - Final Blood Streptococcus Dysgalactiae/Can Staphylococcus Aureus Blood Panel (PCR) - Final S.aureus Methicillin Suscept. Streptococcus Laboratory Results 08/07/17 05:15 08/07/17 05:15 08/06/17 08/07/17 08/08/17 05:59 05:59 05:59 Intake Total 3527 4474 Output Total 3665 3300 Balance -138 1174 Ceftriaxone # 5 Blood cultures 08/06/2017 GPCs in clusters 2/2 sets T 39.2 - Physical Exam General Appearance: non-toxic, other ( Unresponsive) EENT: scleral icterus, No conjunctival petechiae Respiratory: coarse breath sounds Cardiac/Chest: tachycardia Extremities: other ( bilateral venous insufficiency change present without cellulitis), No inflammation Abdomen: non-tender, No distended Skin: No embolic lesions - Line/s RUE PICC Lines: No drainage, No erythema ICD10 Worksheet Patient Problems: Problems Problem Status Onset Alcohol intoxication Acute Rib fractures Acute SAH (subarachnoid hemorrhage) Acute Thoracic spine fracture Acute Cellulitis Acute Gouty arthropathy Acute Septic arthritis of wrist, right Acute Pancytopenia Chronic
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
--- NOTE | 2017-08-07 12:06 | ASMTCMCOM ---
CM Note CM Note Notes: Spoke with patient's , Frannie, who met with Peggy in financial services counselor. Peggy is going to help her review her options and help her get applications completed. Frannie states patient's brother came to see him today. She reports patient's brother has always lived with them, they built the house together. They are close and his brother is looking after the household while patient and Frannie are here. Frannie did get a shower and some sleep last night. She reports feeling better today and will let us know of any needs that arise. CM following. Date Signed: 08/07/2017 12:05 PM Electronically Signed By:Melly Jorge LCSW
[2017-08-07] MEDS: HYDROmorphONE/DILAUDID 1 MG/ML INJ IVP PRN ×2 (12:43→21:15)
[2017-08-07] MEDS: ceFAZolin 2 GM/SWFI 2 GM/20 ML SYR IVP SCH ×2 (14:00→21:15)
[2017-08-07] MEDS ORDERED: ceFAZolin 2 GM/DEXTROSE 100 ML IV SCH ×2 (14:00)
[2017-08-07] MEDS: DILTIAZEM HCL/D5W 125 ML IV SCH (14:24)
[2017-08-07] MEDS: RIFAXIMIN 200 MG TAB PO SCH ×2 (15:57→21:16)
[2017-08-07] MEDS ORDERED: POTASSIUM CL 10 MEQ TAB PO ONE (19:13)
[2017-08-07] MEDS ORDERED: POTASSIUM CL 20 MEQ/15 ML UDCUP TUBE ONE (19:30)
[2017-08-07] MEDS: PATCH REMOVAL 1 EA PATCH TD SCH ×2 (21:16)
[2017-08-07] MEDS: levETIRAcetam 500 MG/5 ML UDCUP TUBE SCH (21:16)
[2017-08-08] MEDS: METOCLOPRAMIDE 10 MG/2 ML VIAL IVP SCH ×3 (00:17→12:26)
[2017-08-08] MEDS: METOPROLOL TARTRATE 5 MG/5 ML INJ IVP SCH ×6 (02:27→22:44)
[2017-08-08] MEDS ORDERED: POTASSIUM CL 20 MEQ/15 ML UDCUP PO ONE (05:33)
[2017-08-08] MEDS: ALBUMIN 25% 100 ML IV SCH ×2 (06:19→14:08)
[2017-08-08] MEDS: ceFAZolin 2 GM/SWFI 2 GM/20 ML SYR IVP SCH ×3 (06:20→22:46)
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
[2017-08-08] MEDS: FUROSEMIDE 40 MG/4 ML VIAL IVP SCH (08:39)
[2017-08-08] MEDS: LACTULOSE 20 GM/30 ML UDCUP TUBE SCH ×2 (08:39→17:35)
[2017-08-08] MEDS: LIDOCAINE 5% 1 EA PATCH TD SCH ×2 (08:40→09:00)
[2017-08-08] MEDS: DESMOPRESSIN ACETATE 4 MCG/ML INJ IVP SCH ×2 (08:40→22:44)
[2017-08-08] MEDS: levETIRAcetam 500 MG/5 ML UDCUP TUBE SCH ×2 (08:40→22:44)
[2017-08-08] MEDS: RIFAXIMIN 200 MG TAB PO SCH ×2 (08:42→17:35)
--- NOTE | 2017-08-08 09:40 | TRAUMAPN ---
- Problem/Surgery Performed (1) Alcohol intoxication Assessment/Plan: PAD#4 08/04/2017 Assessment: No evidence of withdrawal at this point ( etiology of tachycardia appears to be multifactorial) This has been a chronic problem. Note MCV= 108, cirrhosis Plan: Supportive care. longterm plan will need to be developed PAD#6 still tachycardic/afib and temp up I do not think that this is withdrawal PAD#8 Assessment: Alcohol not felt to be contributing to current issues Qualifiers: Complication of substance-induced condition: uncomplicated Qualified Code(s ): F10.920 - Alcohol use, unspecified with intoxication, uncomplicated (2) Rib fractures Assessment/Plan: PAD#4 Assessment: Has multiple right rib and transverse process fractures No PTX but increasing bilateral (R>L) fluid collections Plan: CT to assess. May need chest tube/thoracentesis/VATS PAD#5 Assessment: CT yesterday showed left rib fractures that had not been reported on original CT read (1st- old, new laterally- 4,5,6,8,10,11, posteriorly - 5,6,7,8,9,10). Bilateral fluid collections were at [facility] [facility] level consistent with fluid not blood. bilateral lower lobe consolidation seen. Lidoderm patch used on right. Plan: continue pulmonary support. Add lidoderm patch to left chest. PAD#6 Assessment: CXR without significant changes. Still on Vent. Bilateral lower lobe consolidation continues. Plan: Continue pulmonary support PAD#8 Assessment: Stable on vent. CXR yesterday shows possibly slight increase in bilateral effusions. Plan: CXR in am may consider chest tubes will try breathing trial today Qualifiers: Encounter type: initial encounter Rib fracture type: multiple ribs Fracture type: closed Laterality: right Qualified Code(s): S22.41XA - Multiple fractures of ribs, right side, initial encounter for closed fracture (3) SAH (subarachnoid hemorrhage) Assessment/Plan: PAD#4 Assessment: Neurosurgery input appreciated. Plan: As per neurosurgery will continue Keppra and continue to re-assess. PAD#5 Assessment: less arousable. No longer moving toes to command Plan: per neurosurgery PAD#6 EEG in progress. Assessment: Not moving extremities to command Plan: Guidance per neurosurgery PAD#8 Assessment: CT yesterday shows increase in volume of hygromas but no acute bleeding issues. EEG does not show seizure activity Plan: Per neurosurgery Day 2 of 5 of planned observation period (4) Thoracic spine fracture Assessment/Plan: PAD#4 Assessment: TLSO brace present PAD#5 same PAD#6 same PAD#8 same Qualifiers: Encounter type: initial encounter Thoracic vertebra fracture level: T9 Fracture type: closed Fracture morphology: burst- stable Qualified Code(s): S22.071A - Stable burst fracture of T9-T10 vertebra, initial encounter for closed fracture (5) Cellulitis Assessment/Plan: PAD#4 Assessment: Edema 4+ erythema present but improved per nursing. Perhaps this is the source of his MSSA sepsis Plan: Work to minimize edema with tanya wrap and elevation PAD#5 assessment: Edema dramatically reduced PAD#6 Assessment: Edema resolved/cellulitis resolved PAD#8 same Qualifiers: Site of cellulitis: extremity Site of cellulitis of extremity: lower extremity Laterality: right Qualified Code(s): L03.115 - Cellulitis of right lower limb (6) Pancytopenia Assessment/Plan: PAD#4 Assessment: Platelets still low. Will not transfuse unless symptomatic or procedure planned. PAD#5 Assessment: Hct stabilizing platelets up to 65 WBC up to 11k. PAD#6 Assessment: HCT increased. WBC down platelets 48 Plan: no transfusions (platelets) at this point PAD#8 Hct stable wbc up platelets 45 Plan: no platelets unless bleeding is an issue Assessment/Plan: PAD#4 Assessment: 1)Nutrition- no bowel function yet and moderate NG output. 2)Coagulation status: INR increasing 3)Elevated total and direct Bilirubin. Known gall stones 4)Fluid status: Total body fluid overload but possibly intravascularly dry 5)Sedation:currently off and patient appears to be slowly becoming interactive. (Moves toes to request) Plan: 1)Will add glucose to IV fluids ( has received Thiamine) and consider TPN if enteric feeding does not become an option. 2)Vit K added as well as FFP 3)Bilirubin issues unclear. May be due to liver failure but if increases will need to consider MRCP to help guide plans 4)Gentle diuresis continues 5)Added topical lidoderm for pain control / hope to minimize narcotics PAD#5 Assessment: Still critical 1)Nutrition- Gastric residuals minimal, minimal bowel sounds 2)Coagulation status: INR improved 3)Continued elevated total and direct Bilirubin. Known gall stones. Bile ducts not dilated on CT yesterday. There do not appear to be any contributing medications. 4)Fluid status: Total body fluid overload but possibly intravascularly dry. BUN up but Cr down. 5)Sedation:currently off and patient appears to be slowly becoming interactive. (Moves toes to request) 6)Afib started yesterday. Responded to diltiazem drip. 7)Infection: low grade temp, MSSA and strep C. + blood cultures, H. Flu and strep in sputum Plan: 1)After MRCP will start trickle feeds 2)will follow INR 3)Bilirubin issues still unclear. Presume elevated bilirubin is due to cirrhosis and failing liver. MRCP planned for this morning 4)Gentle diuresis continues. 5)Additional topical lidoderm patch added for left side for pain control / hope to minimize narcotics 6)Follow cardiac status 7)Will adjust antibiotics per C&S PAD#6 Assessment: Still critical 1)Nutrition- moving bowels, Feeds at 45cc/hr 2)Coagulation status: INR worse at 1.6 to 2.01 3)Unable to get MRCP due to expected ventilation induced artifact. Transaminases normalized bili up to 13. Presume due to hepatic failure not obstruction 4)Fluid status: Total body fluid overload but possibly intravascularly dry. BUN and Cr down. 5)Sedation off. no movement to command. occasional spontaneous movement of left shoulder 6)Afib started yesterday. Responded to and still on diltiazem drip. 7)Infection: Dr. Ny's input appreciated. Culture sensitivities pending. Note : Echo had been done and no vegetations noted Plan: 1)will advance feeds to goal 2)will follow INR, will repeat FFP 3)Will consider asking for GI consult 4)Gentle diuresis continues. 5)Per neurosurgery suggestions 6)Follow cardiac status 7)Will adjust antibiotics per C&S PAD#8 Still critical 1)Nutrition- moving bowels, Feeds at goal 2)Coagulation status: INR worse at 1.6 to 2.11 yesterday 3)Bilirubin 14.4 4)Fluid status: Tachycardia, Total body fluid overload but possibly intravascularly dry. cr 1.8 bun 79 5)EEG to significant findings 6)Afib resolved. diltiazem drip off. 7)Infection: Antibiotics changed Plan: 1)Maintain feeds 2)will follow INR, will repeat FFP today 3)Presume due to hepatic failure 4)will hold diuresis today. 5)Per neurosurgery suggestions, will ask for neurology consult 6)Follow cardiac status 7)Follow Objective: Vital Signs Temp Pulse Resp BP Pulse Ox 38.4 C H 115 H 21 H 131/54 H 97 08/08/17 07:00 08/08/17 09:00 08/08/17 09:00 08/08/17 09:00 08/08/17 09:00 Microbiology 08/06/17 16:55 Gram Stain - Final Lung Bilateral - Bronchial Washings Laboratory Results 08/07/17 05:15 08/08/17 04:20 08/07/17 08/08/17 08/09/17 05:59 05:59 05:59 Intake Total 4474 4022 Output Total 3300 2400 Balance 1174 1622 PT 23.7 SEC (12.0-15.0) H 08/07/17 05:15 INR 2.11 (0.83-1.16) H 08/07/17 05:15 - C-Spine Clearance Cervical Spine Cleared: Yes
--- NOTE | 2017-08-08 10:19 | TRAUMAPN ---
Assessment/Plan: PAD#4 Assessment: 1)Nutrition- no bowel function yet and moderate NG output. 2)Coagulation status: INR increasing 3)Elevated total and direct Bilirubin. Known gall stones 4)Fluid status: Total body fluid overload but possibly intravascularly dry 5)Sedation:currently off and patient appears to be slowly becoming interactive. (Moves toes to request) Plan: 1)Will add glucose to IV fluids ( has received Thiamine) and consider TPN if enteric feeding does not become an option. 2)Vit K added as well as FFP 3)Bilirubin issues unclear. May be due to liver failure but if increases will need to consider MRCP to help guide plans 4)Gentle diuresis continues 5)Added topical lidoderm for pain control / hope to minimize narcotics PAD#5 Assessment: Still critical 1)Nutrition- Gastric residuals minimal, minimal bowel sounds 2)Coagulation status: INR improved 3)Continued elevated total and direct Bilirubin. Known gall stones. Bile ducts not dilated on CT yesterday. There do not appear to be any contributing medications. 4)Fluid status: Total body fluid overload but possibly intravascularly dry. BUN up but Cr down. 5)Sedation:currently off and patient appears to be slowly becoming interactive. (Moves toes to request) 6)Afib started yesterday. Responded to diltiazem drip. 7)Infection: low grade temp, MSSA and strep C. + blood cultures, H. Flu and strep in sputum Plan: 1)After MRCP will start trickle feeds 2)will follow INR 3)Bilirubin issues still unclear. Presume elevated bilirubin is due to cirrhosis and failing liver. MRCP planned for this morning 4)Gentle diuresis continues. 5)Additional topical lidoderm patch added for left side for pain control / hope to minimize narcotics 6)Follow cardiac status 7)Will adjust antibiotics per C&S PAD#6 Assessment: Still critical 1)Nutrition- moving bowels, Feeds at 45cc/hr 2)Coagulation status: INR worse at 1.6 to 2.01 3)Unable to get MRCP due to expected ventilation induced artifact. Transaminases normalized bili up to 13. Presume due to hepatic failure not obstruction 4)Fluid status: Total body fluid overload but possibly intravascularly dry. BUN and Cr down. 5)Sedation off. no movement to command. occasional spontaneous movement of left shoulder 6)Afib started yesterday. Responded to and still on diltiazem drip. 7)Infection: Dr. Ny's input appreciated. Culture sensitivities pending. Note : Echo had been done and no vegetations noted Plan: 1)will advance feeds to goal 2)will follow INR, will repeat FFP 3)Will consider asking for GI consult 4)Gentle diuresis continues. 5)Per neurosurgery suggestions 6)Follow cardiac status 7)Will adjust antibiotics per C&S PAD#8 Still critical 1)Nutrition- moving bowels, Feeds at goal 2)Coagulation status: INR worse at 1.6 to 2.11 yesterday 3)Bilirubin 14.4 4)Fluid status: Tachycardia, Total body fluid overload but possibly intravascularly dry. cr 1.8 bun 79 5)EEG to significant findings 6)Afib resolved. diltiazem drip off. 7)Infection: Antibiotics changed Plan: 1)Maintain feeds 2)will follow INR, will repeat FFP today 3)Presume due to hepatic failure 4)will hold diuresis today. 5)Per neurosurgery suggestions, will ask for neurology consult 6)Follow cardiac status 7)Follow Objective: Vital Signs Temp Pulse Resp BP Pulse Ox 38.4 C H 115 H 21 H 131/54 H 97 08/08/17 07:00 08/08/17 09:00 08/08/17 09:00 08/08/17 09:00 08/08/17 09:00 Microbiology 08/06/17 16:55 Gram Stain - Final Lung Bilateral - Bronchial Washings Laboratory Results 08/07/17 05:15 08/08/17 04:20 08/07/17 08/08/17 08/09/17 05:59 05:59 05:59 Intake Total 4474 4022 Output Total 3300 2400 Balance 1174 1622 PT 23.7 SEC (12.0-15.0) H 08/07/17 05:15 INR 2.11 (0.83-1.16) H 08/07/17 05:15 - C-Spine Clearance Cervical Spine Cleared: Yes Physical Exam - Physical Exam General Appearance: other (intubated but not interactive) EENT: ET tube Neck: non-tender, full range of motion, supple Respiratory: crackles, rhonchi, other (on vent) Cardiac/Chest: regular rate, rhythm, tachycardia Abdomen: normal bowel sounds, non-tender, soft, distended Male Genitalia: deferred Rectal: deferred Skin: jaundice Extremities: other (right lower leg dressing/tanya wrap ) Neuro/Psych: other (comatose) Time Spent w/Patient (minutes): 45
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
[2017-08-08] MEDS: POTASSIUM Cl (KCl) 20 MEQ in D5W 1,000 ML IV SCH (12:26)
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
[2017-08-08] MEDS: LORazepam 2 MG/ML INJ IVP PRN ×3 (19:02→22:44)
[2017-08-08] MEDS: HYDROmorphONE/DILAUDID 1 MG/ML INJ IVP PRN ×2 (19:08→21:32)
[2017-08-08] MEDS: PATCH REMOVAL 1 EA PATCH TD SCH ×2 (22:44)
[2017-08-09] MEDS: POTASSIUM Cl (KCl) 20 MEQ in D5W 1,000 ML IV SCH ×2 (00:11→11:00)
[2017-08-09] MEDS: METOPROLOL TARTRATE 5 MG/5 ML INJ IVP SCH ×3 (01:16→11:00)
[2017-08-09 04:32] LABS: PLATELET COUNT 42 10^3/uL (150-400)
[2017-08-09 04:43] LABS: INR 2.2 (0.83-1.16); PROTIME(PATIENT) 24.5 SEC (12.0-15.0)
[2017-08-09] MEDS: ceFAZolin 2 GM/SWFI 2 GM/20 ML SYR IVP SCH (05:53)
[2017-08-09] MEDS: LORazepam 2 MG/ML INJ IVP PRN ×2 (05:53→11:50)
[2017-08-09 08:23] VITALS: RESP 23; TEMP 99.4
[2017-08-09 08:24] VITALS: O2SAT 92
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
[2017-08-09] MEDS: DESMOPRESSIN ACETATE 4 MCG/ML INJ IVP SCH (09:14)
[2017-08-09] MEDS: LIDOCAINE 5% 1 EA PATCH TD SCH ×2 (09:15)
[2017-08-09] MEDS: levETIRAcetam 500 MG/5 ML UDCUP TUBE SCH (09:15)
--- NOTE | 2017-08-09 09:20 | NEUROPROG ---
Assessment: Patient not seen - no charges. Family has decided on cessation of life sustaining/ denying measures and will focus on comfort and dignified passing. Will sign off. Objective: Vital Signs Temp Pulse Resp BP Pulse Ox 37.4 C 119 H 23 H 111/58 L 92 08/09/17 07:00 08/09/17 08:00 08/09/17 08:00 08/09/17 08:00 08/09/17 08:00 Microbiology 08/06/17 16:55 Gram Stain - Final Lung Bilateral - Bronchial Washings Laboratory Results 08/09/17 04:10 08/09/17 04:10 08/08/17 08/09/17 08/10/17 05:59 05:59 05:59 Intake Total 4022 2920 Output Total 2400 2500 Balance 1622 420 PT 24.5 SEC (12.0-15.0) H 08/09/17 04:10 INR 2.20 (0.83-1.16) H 08/09/17 04:10 Allergies/Adverse Reactions: rosuvastatin calcium [From Crestor] Allergy (Verified 12/14/16 20:03) JOINT PAIN
--- NOTE | 2017-08-09 09:46 | TRAUMAPN ---
Assessment/Plan: PAD#4 Assessment: 1)Nutrition- no bowel function yet and moderate NG output. 2)Coagulation status: INR increasing 3)Elevated total and direct Bilirubin. Known gall stones 4)Fluid status: Total body fluid overload but possibly intravascularly dry 5)Sedation:currently off and patient appears to be slowly becoming interactive. (Moves toes to request) Plan: 1)Will add glucose to IV fluids ( has received Thiamine) and consider TPN if enteric feeding does not become an option. 2)Vit K added as well as FFP 3)Bilirubin issues unclear. May be due to liver failure but if increases will need to consider MRCP to help guide plans 4)Gentle diuresis continues 5)Added topical lidoderm for pain control / hope to minimize narcotics PAD#5 Assessment: Still critical 1)Nutrition- Gastric residuals minimal, minimal bowel sounds 2)Coagulation status: INR improved 3)Continued elevated total and direct Bilirubin. Known gall stones. Bile ducts not dilated on CT yesterday. There do not appear to be any contributing medications. 4)Fluid status: Total body fluid overload but possibly intravascularly dry. BUN up but Cr down. 5)Sedation:currently off and patient appears to be slowly becoming interactive. (Moves toes to request) 6)Afib started yesterday. Responded to diltiazem drip. 7)Infection: low grade temp, MSSA and strep C. + blood cultures, H. Flu and strep in sputum Plan: 1)After MRCP will start trickle feeds 2)will follow INR 3)Bilirubin issues still unclear. Presume elevated bilirubin is due to cirrhosis and failing liver. MRCP planned for this morning 4)Gentle diuresis continues. 5)Additional topical lidoderm patch added for left side for pain control / hope to minimize narcotics 6)Follow cardiac status 7)Will adjust antibiotics per C&S PAD#6 Assessment: Still critical 1)Nutrition- moving bowels, Feeds at 45cc/hr 2)Coagulation status: INR worse at 1.6 to 2.01 3)Unable to get MRCP due to expected ventilation induced artifact. Transaminases normalized bili up to 13. Presume due to hepatic failure not obstruction 4)Fluid status: Total body fluid overload but possibly intravascularly dry. BUN and Cr down. 5)Sedation off. no movement to command. occasional spontaneous movement of left shoulder 6)Afib started yesterday. Responded to and still on diltiazem drip. 7)Infection: Dr. Ny's input appreciated. Culture sensitivities pending. Note : Echo had been done and no vegetations noted Plan: 1)will advance feeds to goal 2)will follow INR, will repeat FFP 3)Will consider asking for GI consult 4)Gentle diuresis continues. 5)Per neurosurgery suggestions 6)Follow cardiac status 7)Will adjust antibiotics per C&S PAD#8 Still critical 1)Nutrition- moving bowels, Feeds at goal 2)Coagulation status: INR worse at 1.6 to 2.11 yesterday 3)Bilirubin 14.4 4)Fluid status: Tachycardia, Total body fluid overload but possibly intravascularly dry. cr 1.8 bun 79 5)EEG to significant findings 6)Afib resolved. diltiazem drip off. 7)Infection: Antibiotics changed Plan: 1)Maintain feeds 2)will follow INR, will repeat FFP today 3)Presume due to hepatic failure 4)will hold diuresis today. 5)Per neurosurgery suggestions, will ask for neurology consult 6)Follow cardiac status 7)Follow PAD#9 Please see neurology note. Family has decided on withdrawal of support. Plan: Comfort measures and family support will be pursued. Subjective: Intubated and non responsive Objective: Vital Signs Temp Pulse Resp BP Pulse Ox 37.4 C 119 H 23 H 111/58 L 92 08/09/17 07:00 08/09/17 08:00 08/09/17 08:00 08/09/17 08:00 08/09/17 08:00 Microbiology 08/06/17 16:55 Gram Stain - Final Lung Bilateral - Bronchial Washings Laboratory Results 08/09/17 04:10 08/09/17 04:10 08/08/17 08/09/17 08/10/17 05:59 05:59 05:59 Intake Total 4022 2920 Output Total 2400 2500 Balance 1622 420 PT 24.5 SEC (12.0-15.0) H 08/09/17 04:10 INR 2.20 (0.83-1.16) H 08/09/17 04:10 - C-Spine Clearance Cervical Spine Cleared: Yes Physical Exam - Physical Exam General Appearance: other (comatose) Respiratory: other (intubated) Cardiac/Chest: regular rate, rhythm, tachycardia Abdomen: distended, other (tube feeds off) Male Genitalia: deferred Rectal: deferred Skin: jaundice Neuro/Psych: other (coma) Time Spent w/Patient (minutes): 15
[2017-08-09 11:00] VITALS: BP 137/65; PULSE 139
[2017-08-09] MEDS ORDERED: LORazepam 2 MG/ML INJ IVP PRN (11:52)
[2017-08-09] MEDS ORDERED: GLYCOPYRROLATE 0.2 MG/1 ML VIAL IVP PRN (11:53)
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
--- NOTE | 2017-08-09 12:20 | ASMTCMCOM ---
CM Note CM Note Notes: Family has decided to withdraw support. Sons have arrived to say their "Good-byes". not interested in spiritual support, has friends and family nearby. SW offered support and Comfort Cart ordered by RN. Date Signed: 08/09/2017 12:20 PM Electronically Signed By:Libby Montenegro LCSW
== END 2017-08-09 17:35 | disposition expired | DRG 82 ==
LOC: EDUNIT# → EEVIPCON 23:14 → F2N 08-01 00:15
PROVIDERS: ADMIT Surgery; ATTEND Surgery
PROC: 5A1955Z Respiratory Ventilation, Greater than 96 Consecutive Hours (ICD-10-PCS; principal; 2017-08-02)
PROC: 0B968ZX Drainage of Right Lower Lobe Bronchus, Via Natural or Artificial Opening Endoscopic, Diagnostic (ICD-10-PCS; principal; 2017-08-02)
PROC: 0BH18EZ Insertion of Endotracheal Airway into Trachea, Via Natural or Artificial Opening Endoscopic (ICD-10-PCS; principal; 2017-08-02)
PROC: 0B9B8ZX Drainage of Left Lower Lobe Bronchus, Via Natural or Artificial Opening Endoscopic, Diagnostic (ICD-10-PCS; principal; 2017-08-02)
PROC: 02HV33Z Insertion of Infusion Device into Superior Vena Cava, Percutaneous Approach (ICD-10-PCS; 2017-08-02)
PROC: 30233K1 Transfusion of Nonautologous Frozen Plasma into Peripheral Vein, Percutaneous Approach (ICD-10-PCS; 2017-08-04)
PROC: 0B968ZZ Drainage of Right Lower Lobe Bronchus, Via Natural or Artificial Opening Endoscopic (ICD-10-PCS; 2017-08-06)
PROC: 0BC68ZZ Extirpation of Matter from Right Lower Lobe Bronchus, Via Natural or Artificial Opening Endoscopic (ICD-10-PCS; 2017-08-06)
PROC: 0B9B8ZZ Drainage of Left Lower Lobe Bronchus, Via Natural or Artificial Opening Endoscopic (ICD-10-PCS; 2017-08-06)
PROC: 0BCB8ZZ Extirpation of Matter from Left Lower Lobe Bronchus, Via Natural or Artificial Opening Endoscopic (ICD-10-PCS; 2017-08-06)
DX: S06.6X9A Traumatic subarachnoid hemorrhage with loss of consciousness of unspecified duration, initial encounter (principal); S22.43XA Multiple fractures of ribs, bilateral, initial encounter for closed fracture; S22.070A Wedge compression fracture of T9-T10 vertebra, initial encounter for closed fracture; S42.011A Anterior displaced fracture of sternal end of right clavicle, initial encounter for closed fracture; S42.141A Displaced fracture of glenoid cavity of scapula, right shoulder, initial encounter for closed fracture; R78.81 Bacteremia; B95.61 Methicillin susceptible Staphylococcus aureus infection as the cause of diseases classified elsewhere; J96.02 Acute respiratory failure with hypercapnia; L03.115 Cellulitis of right lower limb; V47.5XXA Car driver injured in collision with fixed or stationary object in traffic accident, initial encounter; Y92.414 Local residential or business street as the place of occurrence of the external cause; J98.09 Other diseases of bronchus, not elsewhere classified; F10.229 Alcohol dependence with intoxication, unspecified; E87.1 Hypo-osmolality and hyponatremia; E87.2 Acidosis; E87.6 Hypokalemia; I48.91 Unspecified atrial fibrillation; K70.40 Alcoholic hepatic failure without coma; Z87.891 Personal history of nicotine dependence; R40.2413 Glasgow coma scale score 13-15, at hospital admission; Z51.5 Encounter for palliative care
CPT/HCPCS: 82947-QW; C1751; G0480; J0690; J0696; J1160; J1170; J1630; J1940; J1953; J2060; J2270; J2310; J2597; J2765; J2997; J3010; J3411; J3430; J3475; J3480; P9016; P9017; P9041; P9047